=== PATIENT | male | born 1985 | race Caucasian/White ===

== ENCOUNTER 2022-04-21 07:58 | Day surgery (SDC) | payer MEDICAID ==
[~2022-04-21] VITALS: Ht 185.4 cm; Wt 94.3 kg
[2022-04-21] MEDS ORDERED: DIPHENHYDRAMINE INJ 50 MG/ML VIAL ONE (09:38)
[2022-04-21] MEDS ORDERED: fentaNYL CITRATE/PF 100 MCG/2 ML AMP ONE ×2 (09:38→10:18)
[2022-04-21] MEDS ORDERED: MIDAZOLAM HCL 5 MG/5 ML VIAL ONE ×2 (09:38→10:20)
[2022-04-21 13:12] VITALS: BP_SYST 117
== END 2022-04-21 11:05 | disposition home or self-care (01) ==
LOC: SDS 07:58 → SMU 08:00 → SDS 11:05
PROVIDERS: ATTEND Internal Medicine
DX: R10.13 Epigastric pain (principal); K29.50 Unspecified chronic gastritis without bleeding; K44.9 Diaphragmatic hernia without obstruction or gangrene; Z20.822 Contact with and (suspected) exposure to COVID-19
CPT/HCPCS: 43239; 87426; 87081; 36415; 88305; 88312; 88313; 99152; G0378; J2250; J3010; J1200